=== PATIENT | male | born 1985 | race Caucasian/White ===

== ENCOUNTER 2017-07-24 15:32 | Emergency (ER) | payer SELFPAY ==
[~2017-07-24] VITALS: Ht 180.3 cm; Wt 71.0 kg
[2017-07-24] MEDS ORDERED: DUR12 TOP (15:38)
[2017-07-24] MEDS ORDERED: ALPR0.5T PO (15:38)
[2017-07-24] MEDS ORDERED: IBUPROFEN 600MG TABLET PO STA (15:54)
[2017-07-24 16:20] LABS: BASOPHILS % 0.8 % (0.0-2.0); EOSINOPHILS % 0.5 % (0.0-5.0); HEMATOCRIT. 38.2 % (42.0-52.0); HEMOGLOBIN. 12.8 g/dL (14.0-18.0); LYMPHOCYTES % 27.1 % (20.0-50.0); MEAN CORPUSCULAR HEMOGLOBIN 29.7 pg (28.0-32.0); MEAN CORPUSCULAR VOLUME 88.7 fL (80.0-94.0); MONOCYTES % 14.4 % (2.0-8.0); NEUTROPHILS % 57.2 % (40.0-76.0); PLATELET 331 x1000/uL (130-400); RED BLOOD CELL COUNT 4.31 mill/uL (4.7-6.1)
[2017-07-24 16:21] LABS: CARBON DIOXIDE 26 mEq/L (21-32); CHLORIDE 104 mEq/L (98-107)
[2017-07-24 16:27] LABS: TROPONIN I < 0.02 ng/mL (0.00-0.04)
[2017-07-24 19:30] VITALS: BP 118/70
== END 2017-07-24 20:22 | disposition home or self-care (01) ==
LOC: ER 15:32
DX: R07.9 Chest pain, unspecified (principal)
CPT/HCPCS: 36415; 71010; 80053; 84484; 85025; 93005; 99285; Z7610